=== PATIENT | female | born 1965 | race Caucasian/White ===

== ENCOUNTER 2020-09-09 09:33 | Observation (INO) | payer BC ==
--- OUTSIDE RECORDS SUMMARY | 2020-09-09 10:24 | XMS REPORT | Continuity of Care Document ---
:1965 Author Organization [facility] t Address [address] [place] [address] Care Team Providers Name Role Phone Braulio Beard MD Primary Care Physician Problems Condition Condition Condition Status Onset Resolution Last Treating Co mments Source Name Details Category Date Date Treatment Clinician Date Acute Acute Disease Active 2017-08 [place] perforated perforated - Me thodi appendicit appendicit 00:00: st is is 00 Allergies, Adverse Reactions, Alerts This patient has no known allergies or adverse reactions. Family History Family Member Diagnosis Comments Start Date Stop Date Source Natural father Heart disease [facility] mother Hypertension [facility] Social History Social Habit Start Date Stop Date Quantity Comments Source Sex Assigned At [facility] ethodi Tobacco use and 2018-07-18 2018-07-18 Never used [facility]ist exposure 00:00:00 00:00:00 Alcohol intake 2018-07-18 2018-07-18 Current drinker [place] 00:00:00 00:00:00 of alcohol (finding) Alcohol Comment 2018-07-17 2018-07-17 socially [facility] ethodist 00:00:00 00:00:00 Smoking Status Start Date Stop Date Source Never smoker [place] [facility] t Medications Ordered Filled Start Stop Current Ordering Indication Dosage Frequency Signature Comments Components Source Medication Medication Date Date Medication? Clinician (SIG) Name Name multivitami 2017-08 Yes 1{tbl} QD Take 1 [place] 2-05 tablet by [facility] (THERAGRAN) 13:40: mouth st tablet 40 daily. aspirin 2017-08 Yes 81mg QD Take 81 mg [place] (ECOTRIN) 2-05 by mouth Method i 81 MG 13:40: daily. st enteric 40 coated tablet Procedures This patient has no known procedures. Plan of Care Planned Activity Planned Date Details Comments Source Future Scheduled 2020-03-15 INFLUENZA VACCINE [place] Test 00:00:00 [code = INFLUENZA VACCINE] Future Scheduled 2016 BREAST CANCER [facility] thodist Test 00:00:00 SCREENING [code = BREAST CANCER SCREENING] Future Scheduled 2016 COLONOSCOPY SCREENING [facility] [place] Test 00:00:00 [code = COLONOSCOPY SCREENING] Future Scheduled 2016 SHINGLES VACCINES [place] Test 00:00:00 (#1) [code = SHINGLES VACCINES (#1)] Future Scheduled 1987 Screening for [facility] thodist Test 00:00:00 malignant neoplasm of cervix (procedure) [code = 633269789] Future Scheduled 1982 COVID-19 VACCINE (1 [place] Test 00:00:00 of 2) [code = COVID-19 VACCINE (1 of 2)] Results Test Description Test Time Test Comments Results Result [facility] e Comments SCR MAMM BILATERAL 2020-02-28 - SCR MAMM BILATERAL MAJO CAD DIGITAL 16:01:49 MAJO CAD DIGITALBILATERAL DIGITAL SCREENING MAMMOGRAM 3D/2D WITH CAD: 02/28/2020CLINICAL: Asymptomatic. Digital breast tomosynthesis was performed in addition to routine CC and MLO views. Current mammographic images were evaluated by either a [employer] M-Vu or a [employer] ImageChecker CAD (computer aided detection system). Comparison is made to exams dated 02/26/2019 mammogram, 10/27/2017 mammogram, and 07/15/2016 mammogram - [facility]. There are scattered fibroglandular tissues in both breasts. No suspicious mass, architectural distortion, malignant type calcification, or lymph node abnormality detected. Breast architecture is stable compared to prior exams.IMPRESSION: NEGATIVEThere is no mammographic evidence of malignancy. Resume annual screening mammography in one year. Max Li M.D. ss/penrad:02/28/2020 16:01:49 Senior Operator: Leatha GONZALES, [facility] sent: BIRADS 1-2 Normal Mammogram BI-RADS: 1 Negative SCR MAMM BILATERAL 2019-03-05 - SCR MAMM BILATERAL MAJO CAD DIGITAL 09:25:26 MAJO CAD DIGITALBILATERAL DIGITAL SCREENING MAMMOGRAM 3D/2D WITH CAD: 02/26/2019CLINICAL: Asymptomatic. Digital breast tomosynthesis was performed in addition to routine CC and MLO views. Current mammographic images were evaluated by either a [employer] M-Vu or a [employer] ImageChecker CAD (computer aided detection system). Comparison is made to exams dated 10/27/2017 mammogram, 07/15/2016 mammogram, and 03/05/2015 mammogram - [facility]. There are scattered fibroglandular tissues in both breasts. No suspicious mass, architectural distortion, malignant type calcification, or lymph node abnormality detected. Breast architecture is stable compared to prior exams.IMPRESSION: NEGATIVEThere is no mammographic evidence of malignancy. Resume annual screening mammography in one year. Jas López M.D. qn/penrad:03/05/2019 09:25:26 Senior Operator: Honey GONZALES, [facility] sent: BIRADS 1-2 Normal Mammogram BI-RADS: 1 Negative
--- OUTSIDE RECORDS SUMMARY | 2020-09-09 10:24 | XMS REPORT | Clinical Summary ---
:1965 Author Organization [facility] Address [address] [place] [id number] Care Team Providers Name Role Phone David Beard MD Primary Care Provider [phone] Allergies No Known Active Allergies Medications Medication Sig Dispensed Refills Start Date End Date Status multivitamin Take 1 tablet by 0 Active (THERAGRAN) tablet mouth daily. aspirin (ECOTRIN) 81 MG Take 81 mg by 0 Active enteric coated tablet mouth daily. Active Problems Problem Noted Date Acute perforated appendicitis 07/17/2018 Surgical History Surgery Date Site/Laterality Comments SECTION TUBAL LIGATION HYSTEROSCOPY, WITH UTERINE ABLATION APPENDECTOMY 07/17/2018 Abdomen/N/A Procedure: APPEN DECTOMY; Surgeon: Braulio Chase MD; Loca tion: [facility] OR; Service: [facility]; Laterality: N/A; Family History Medical History Relation Name Comments Heart disease Father Cancer Mother Diabetes Mother Hypertension Mother Relation Name Status Comments Father Mother Social History Tobacco Use Types Packs/Day Years Used Date Never Smoker Smokeless Tobacco: Never Used Alcohol Use Drinks/Week oz/Week Comments Yes socially Sex Assigned at Date Recorded Not on file Last Filed Vital Signs Not on file Plan of Treatment Health Maintenance Due Date Last Done Comments COVID-19 VACCINE (1 of 2) 1982 CERVICAL CANCER SCREENING 1987 BREAST CANCER SCREENING 2016 COLONOSCOPY SCREENING 2016 SHINGLES VACCINES (#1) 2016 INFLUENZA VACCINE 03/15/2020 Results Not on fileafter 09/09/2019 Advance Directives For more information, please contact: [phone] Type Date Recorded 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
[2020-09-09 10:41] LABS: Absolute Lymphocytes (CBC) 0.5 K/uL (0.7-4.9); Basophils % 0.4 % (0-1.3); Hematocrit 41.1 % (36.0-45.0); Lymphocytes % 9.9 % (15.3-44.8); MPV 8.8 fL (7.6-11.3); RBC Red Blood Cell Count 4.62 M/uL (3.86-4.86)
[2020-09-09 10:48] LABS: Protime INR 0.97
[2020-09-09 10:51] LABS: Urine Blood NEGATIVE (NEG); Urine Glucose NEGATIVE (NEG); Urine Protein NEGATIVE (NEG); Urine pH 8.5 (5.0-7.0)
--- NOTE | 2020-09-09 10:54 | RAD REPORT ---
EXAM DESCRIPTION: RAD - Chest Single View - 09/09/2020 10:36 am CLINICAL HISTORY: CHEST PAIN COMPARISON: None TECHNIQUE: AP portable chest image was obtained 09/09/2020 10:36 am . FINDINGS: Lungs are clear. Heart and vasculature are normal. No measurable pleural effusion and no p neumothorax. No acute bony abnormality seen. No acute aortic findings suspected. IMPRESSION: No acute cardiopulmonary process.
[2020-09-09 11:00] LABS: ALT/SGPT 37 U/L (12-78); AST/SGOT 23 U/L (15-37); Albumin 4.3 g/dL (3.4-5.0); Alkaline Phosphatase 108 U/L (45-117); BUN Blood Urea Nitrogen 8 mg/dL (7-18); Bicarbonate 27 mmol/L (21-32); Bilirubin Direct 0.1 mg/dL (0-0.2); Bilirubin Total 0.5 mg/dL (0.2-1.0); Glucose Level 96 mg/dL (74-106); Lipase 137 U/L (73-393); Magnesium 2.6 mg/dL (1.8-2.4); NT PRO-BNP 20 pg/mL (<125); Protein, Total 8.1 g/dL (6.4-8.2); Sodium Level 138 mmol/L (136-145); Troponin (Emerg Dept Use Only) < 0.02 ng/mL (0.0-0.045)
--- NOTE | 2020-09-09 11:01 | RAD REPORT ---
EXAM DESCRIPTION: CT - Angio Aorta For Dissection - 09/09/2020 10:42 am CLINICAL HISTORY: Pain;Dissection;PE COMPARISON: Portable chest September 09 TECHNIQUE: Dynamically enhanced 3 mm thick images of the chest, abdomen, and upper pelvis were obtai jan during administration of approximately 150mL Isovue 370 IV contrast. Sagittal and coronal reconst ruction images were generated using MIP and reviewed. Exam utilizes a protocol to evaluate entire cou rse of the aorta. All CT scans are performed using dose optimization technique as appropriate and may include automated exposure control or mA/KV adjustment according to patient size. FINDINGS: Ascending thoracic aorta measures 3.7 cm in diameter. Aortic arch and descending thoracic aorta are normal diameter. There is gentle tapering along the entire length of the aorta the patient has very little atherosclerotic calcification. No dissection, aneurysm or other aortic abnormality. A ortic arch is 3 vessel configuration with no origins stenoses. No subclavian artery abnormality seen. Pulmonary arteries are well visualized. No pulmonary emboli seen. No cardiomegaly, pericardial thicke ronny or pericardial effusion. No mass or infiltrate in the lung parenchyma. No pleural thickening, pleural effusion or pneumothorax . No abnormal mediastinal or hilar mass or lymphadenopathy seen. No chest wall mass or abnormal axillar y lymphadenopathy. Celiac, SMA and renal arteries show no suspicious findings. Patient has 2 left renal artery supplying the kidney is a normal variant. Inferior mesenteric artery is patent. Solid abdominal viscera and dmitry wel show no significant findings. Incidental note made of 2.8 centimeter cyst in the left lobe liver . No abnormal lymphadenopathy. No gallbladder or biliary tree abnormality identifiable. No free air, free fluid or inflammatory stranding. No urinary bladder abnormality. Uterus and ovaries show no susp icious findings. IMPRESSION: Negative CT scan of the aorta. Negative CT scan of the pulmonary arteries. No other significant findings on chest, abdomen and upper pelvis examination.Nonacute findings detail ed in the body of the report.
--- NOTE | 2020-09-09 12:19 | EDPHYS ---
Physician Documentation [facility] Name: Caitlyn eDl Rosario Age: 55 yrs Sex: Female : 1965 Arrival Date: 09/09/2020 Time: 09:38 Bed 13 Private MD: Braulio Fonseca T ED Physician Phuc Garcia HPI: 09/09 12:12 This 55 yrs old Female presents to ER via Ambulatory with complaints of Back iris Pain, Chest Pain. 12:12 The patient presents with pain that is acute, with no known mechanism of injury. iris Historical: - Allergies: 10:07 No Known Allergies; ss - PMHx: 10:07 None; ss - PSHx: 10:07 Appendectomy; ; ss - Immunization history:: Adult Immunizations up to date. - Social history:: Smoking status: Patient denies any tobacco usage or history of. ROS: 12:12 Constitutional: Negative for fever, chills, and weight loss, Eyes: Negative for injury, iris pain, redness, and discharge, ENT: Negative for injury, pain, and discharge, Neck: Negative for injury, pain, and swelling, Respiratory: Negative for shortness of breath, cough, wheezing, and pleuritic chest pain, Abdomen/GI: Negative for abdominal pain, nausea, vomiting, diarrhea, and constipation, : Negative for injury, bleeding, discharge, and swelling, MS/Extremity: Negative for injury and deformity, Skin: Negative for injury, rash, and discoloration, Neuro: Negative for headache, weakness, numbness, tingling, and seizure, Psych: Negative for depression, anxiety, suicide ideation, homicidal ideation, and hallucinations, Allergy/Immunology: Negative for hives, rash, and allergies, Endocrine: Negative for neck swelling, polydipsia, polyuria, polyphagia, and marked weight changes, Hematologic/Lymphatic: Negative for swollen nodes, abnormal bleeding, and unusual bruising. 12:12 Cardiovascular: Positive for chest pain. 12:12 Back: Positive for pain at rest, of the lumbar area. Exam: 12:12 Constitutional: This is a well developed, well nourished patient who is awake, alert, iris and in no acute distress. Head/Face: Normocephalic, atraumatic. Eyes: Pupils equal round and reactive to light, extra-ocular motions intact. Lids and lashes normal. Conjunctiva and sclera are non-icteric and not injected. Cornea within normal limits. Periorbital areas with no swelling, redness, or edema. ENT: Nares patent. No nasal discharge, no septal abnormalities noted. Tympanic membranes are normal and external auditory canals are clear. Oropharynx with no redness, swelling, or masses, exudates, or evidence of obstruction, uvula midline. Mucous membranes moist. Neck: Trachea midline, no thyromegaly or masses palpated, and no cervical lymphadenopathy. Supple, full range of motion without nuchal rigidity, or vertebral point tenderness. No Meningismus. Chest/axilla: Normal chest wall appearance and motion. Nontender with no deformity. No lesions are appreciated. Cardiovascular: Regular rate and rhythm with a normal S1 and S2. No gallops, murmurs, or rubs. Normal PMI, no JVD. No pulse deficits. Respiratory: Lungs have equal breath sounds bilaterally, clear to auscultation and percussion. No rales, rhonchi or wheezes noted. No increased work of breathing, no retractions or nasal flaring. Abdomen/GI: Soft, non-tender, with normal bowel sounds. No distension or tympany. No guarding or rebound. No evidence of tenderness throughout. Back: No spinal tenderness. No costovertebral tenderness. Full range of motion. Skin: Warm, dry with normal turgor. Normal color with no rashes, no lesions, and no evidence of cellulitis. MS/ Extremity: Pulses equal, no cyanosis. Neurovascular intact. Full, normal range of motion. Neuro: Awake and alert, GCS 15, oriented to person, place, time, and situation. Cranial nerves II-XII grossly intact. Motor strength 5/5 in all extremities. Sensory grossly intact. Cerebellar exam normal. Normal gait. Psych: Awake, alert, with orientation to person, place and time. Behavior, mood, and affect are within normal limits. 12:12 Musculoskeletal/extremity: DVT Exam: No signs of deep vein thrombosis. no pain, no swelling, no tenderness, negative Homans' sign noted on exam, no appreciated bluish discoloration, no erythema, no increased warmth. 12:23 ECG was reviewed by the Attending Physician. [facility] Vital Signs: 10:02 BP 134 / 85; Pulse 85; Resp 17; Temp 98.5(TE); Pulse Ox 98% on R/A; Weight 62.6 kg; ss Height 5 ft. 8 in. (172.72 cm); Pain 2/10; 12:30 BP 137 / 86; Pulse 87; Resp 16; Pulse Ox 98% on R/A; ph 13:30 BP 121 / 85; Pulse 89; Resp 18; Pulse Ox 98% on R/A; ph 14:32 BP 113 / 82; Pulse 91; Resp 18; Pulse Ox 100% on R/A; ph 17:19 BP 107 / 89; Pulse 78; Resp 18; Pulse Ox 99% on R/A; ph 18:46 BP 121 / 87; Pulse 76; Resp 20; Pulse Ox 95% on R/A; ph 10:02 Body Mass Index 20.98 (62.60 kg, 172.72 cm) ss MDM: 10:12 Patient medically screened. iris 12:20 Differential diagnosis: acute pericarditis, anxiety, chest wall pain, Abdominal Aortic iris Aneurysm Cholelithiasis esophagitis, gastritis, pancreatitis, pulmonary embolus, Hydronephrosis Osteoarthritis Pyelonephritis thoracic aortic disection, unstable angina. HEART Score: History: Moderately Suspicious (1), ECG: Normal (0), Age: > 45 and < 65 years (1), Risk Factors: 1 or 2 risk factors (1), [+ Family HX] Troponin: < or = 1 x Normal Limit (0). The patient was given aspirin in the Emergency Department. The patient's deep vein thrombosis risk score was calculated as follows: Total Score: 0. This patient was found to be at low risk for a deep vein thrombosis by using the Well's assessment criteria. The patient's pulmonary embolism risk score was calculated as follows: Total Score: 0-2 points. This patient was found to be at low risk for a pulmonary embolism by using the Well's assessment criteria. VICENTE Risk Score: TOTAL SCORE = 0. Data reviewed: vital signs, nurses notes, lab test result(s), EKG, radiologic studies, CT scan. Data interpreted: library monitor: rate is 85 beats/min, rhythm is regular. Test interpretation: by ED physician or midlevel provider: ECG, plain radiologic studies. Counseling: I had a detailed discussion with the patient and/or guardian regarding: the historical points, exam findings, and any diagnostic results supporting the discharge/admit diagnosis, the presence of at least one elevated blood pressure reading (>120/80) during this emergency department visit, lab results, radiology results, the need for further work-up and treatment in the hospital. 09/09 10:14 Order name: Basic Metabolic Panel; Complete Time: 11:40 [facility] 09/09 10:14 Order name: CBC with Diff; Complete Time: 11:40 [facility] 09/09 10:14 Order name: LFT's; Complete Time: 11:40 [facility] 09/09 10:14 Order name: Magnesium; Complete Time: 11:40 [facility] 09/09 10:14 Order name: NT PRO-BNP; Complete Time: 11:40 [facility] 09/09 10:14 Order name: PT-INR; Complete Time: 11:40 [facility] 09/09 10:14 Order name: Troponin (emerg Dept Use Only); Complete Time: 11:40 [facility] 09/09 10:14 Order name: Lipase; Complete Time: 11:40 [facility] 09/09 10:32 Order name: Urine Dipstick--Ancillary (enter results) 09/09 10:32 Order name: Urine --Ancillary (enter results) 09/09 10:52 Order name: Urine --Ancillary; Complete Time: 11:40 [facility] 09/09 10:52 Order name: Urine Dipstick-Ancillary; Complete Time: 11:40 [facility] 09/09 11:27 Order name: CREATININE WHOLE BLOOD; Complete Time: 11:40 [facility] 09/09 11:42 Order name: Urine Culture [facility] 09/09 10:14 Order name: XRAY Chest (1 view) [facility] 09/09 10:14 Order name: CT Aorta for Dissection [facility] 09/09 10:54 Order name: RAD; Complete Time: 11:40 [facility] 09/09 12:15 Order name: Flu [facility] 09/09 13:45 Order name: Basic Metabolic Panel [facility] 09/09 13:45 Order name: Basic Metabolic Panel [facility] 09/09 13:45 Order name: CBC with Automated Diff [facility] 09/09 13:45 Order name: CBC with Automated Diff [facility] 09/09 13:45 Order name: Lipid Profile [facility] 09/09 13:45 Order name: Lipid Profile [facility] 09/09 13:45 Order name: Troponin I [facility] 09/09 13:45 Order name: Troponin I [facility] 09/09 13:45 Order name: Troponin I [facility] 09/09 15:40 Order name: COVID-19/FLU A+B [facility] 09/10 05:10 Order name: Manual Differential [facility] 09/09 10:14 Order name: EKG; Complete Time: 10:15 [facility] 09/09 10:14 Order name: Cardiac monitoring; Complete Time: : [facility] 09/09 10:14 Order name: EKG - Nurse/Tech; Complete Time: [facility] 09/09 10:14 Order name: IV Saline Lock; Complete Time: [facility] 09/09 10:14 Order name: Labs collected and sent; Complete Time: [facility] 09/09 10:14 Order name: O2 Per Protocol; Complete Time: [facility] 09/09 10:14 Order name: O2 Sat Monitoring; Complete Time: [facility] 09/09 10:14 Order name: Urine Dipstick-Ancillary (obtain specimen); Complete Time: : [facility] 09/09 11:02 Order name: CT; Complete Time: 11:40 [facility] 09/09 12:15 Order name: Echo w/ Doppler [facility] 09/09 12:20 Order name: US Abdomen Limited [facility] 09/09 13:45 Order name: Heart Healthy [facility] EC:23 Rate is 77 beats/min. Rhythm is regular. QRS [place] is Normal. AR interval is normal. QRS iris interval is normal. QT interval is normal. No Q waves. T waves are Normal. No ST changes noted. Clinical impression: Normal ECG and No evidence of ischemia. Interpreted by me. Reviewed by me. Administered Medications: 14:10 Drug: Aspirin Chewable Tablet 324 mg Route: PO; ph 18:48 Follow up: Response: No adverse reaction ph 14:10 Drug: Lopressor (metoprolol TARTRATE) 50 mg Route: PO; ph 18:48 Follow up: Response: No adverse reaction ph 14:15 Drug: NS 0.9% 1000 ml Route: IV; Rate: 125 ml/hr; Site: right antecubital; ph 18:47 Follow up: Response: No adverse reaction; IV Status: Infusion continued upon admission ph 14:15 Drug: Rocephin 1 grams Route: IV; Rate: per protocol; Site: right antecubital; ph 14:30 Follow up: Response: No adverse reaction; IV Status: Completed infusion ph 14:17 Drug: Pepcid 20 mg Route: IVP; Site: right antecubital; ph 18:48 Follow up: Response: No adverse reaction ph 14:20 Drug: Lovenox 60 mg Route: Sub-Q; Site: right lower abdomen; ph 18:48 Follow up: Response: No adverse reaction ph Disposition: 09/09/20 12:18 Hospitalization ordered by Jaden Vasquez for Observation. Preliminary diagnosis are Other chest pain, Essential (primary) hypertension, SARS-associated coronavirus as the cause of diseases classified elsewhere - Covid 19. - Bed requested for [facility]. - Status is Observation. iw - Condition is Fair. - Problem is new. - Symptoms have improved. Signatures: Dispatcher [employer] EDMS Sima Romero Corey, MD MD cha Williams, Irene RN RN iw Bre Hwang RN RN ss Danielle Marks RN RN ph Corrections: (The following items were deleted from the chart) 12:18 12:18 Hospitalization Ordered by Jaden Vasquez for Observation. Preliminary diagnosis iris is Other chest pain. Bed requested for Telemetry/MedSurg (observation). Status is Observation. Condition is Fair. Problem is new. Symptoms have improved. iris 14:19 12:15 CORONAVIRUS+MR.LAB.BRZ ordered. EDSD EDMS 16:03 12:18 09/09/2020 12:18 Hospitalization Ordered by Jaden Vasquez for Observation. iris Preliminary diagnosis is Other chest pain; Essential (primary) hypertension. Bed requested for Telemetry/MedSurg (observation). Status is Observation. Condition is Fair. Problem is new. Symptoms have improved. iris 18:35 16:03 09/09/2020 12:18 Hospitalization Ordered by Jaden Vasquez for Observation. bd Preliminary diagnosis is Other chest pain; Essential (primary) hypertension; SARS-associated coronavirus as the cause of diseases classified elsewhere - Covid 19. Bed requested for Telemetry/MedSurg (observation). Status is Observation. Condition is Fair. Problem is new. Symptoms have improved. iris 09/10 10:46 09/09 18:35 09/09/2020 12:18 Hospitalization Ordered by Jaden Vasquez for Observation. iw Preliminary diagnosis is Other chest pain; Essential (primary) hypertension; SARS-associated coronavirus as the cause of diseases classified elsewhere - Covid 19. Bed requested for [facility] ER HOLD. Status is Observation. Condition is Fair. Problem is new. Symptoms have improved. bd
--- NOTE | 2020-09-09 12:19 | ER ---
Nurse's Notes [facility] Name: Caitlyn Del Rosario Age: 55 yrs Sex: Female : 1965 Arrival Date: 09/09/2020 Time: 09:38 Bed 13 Private MD: Braulio Fonseca T Diagnosis: Other chest pain;Essential (primary) hypertension;SARS-associated coronavirus as the cause of diseases classified elsewhere-Covid 19 Presentation: 09/09 10:02 Chief complaint: Patient states: Back feeling "fatigue" that began this morning and ss sudden onset of sharp chest discomfort that radiated up towards L side of jaw. Pt reports that the pain is feeling a little better, but she can still feel some discomfort. Coronavirus screen: Client denies travel out of the [place] in the last 14 days. Ebola Screen: Patient denies exposure to infectious person. Patient denies travel to an Ebola-affected area in the 21 days before illness onset. Initial Sepsis Screen: Does the patient meet any 2 criteria? No. Patient's initial sepsis screen is negative. Does the patient have a suspected source of infection? No. Patient's initial sepsis screen is negative. Risk Assessment: Do you want to hurt yourself or someone else? Patient reports no desire to harm self or others. Note Pt reports she has had exposures at school to COVID and felt like she may have chills. Onset of symptoms was September 09, 2020. 10:02 Method Of Arrival: Ambulatory ss 10:02 Acuity: REEMA 2 ss Historical: - Allergies: 10:07 No Known Allergies; ss - PMHx: 10:07 None; ss - PSHx: 10:07 Appendectomy; ; ss - Immunization history:: Adult Immunizations up to date. - Social history:: Smoking status: Patient denies any tobacco usage or history of. Screenin:32 Abuse screen: Denies threats or abuse. Denies injuries from another. Nutritional ph screening: No deficits noted. Tuberculosis screening: No symptoms or risk factors identified. Fall Risk None identified. Assessment: 10:29 General: Appears in no apparent distress. comfortable, slender, well groomed, Behavior ph is calm, cooperative, appropriate for age, Denies fever, feeling ill. Pain: Complains of pain in low back, L chest Pain radiates to L jaw Pain began 2 hours ago. Neuro: Level of Consciousness is awake, alert, obeys commands, Oriented to person, place, time, situation. Cardiovascular: Reports chest pain, lightheadedness, nausea, shortness of breath, Capillary refill < 3 seconds in bilateral fingers Patient's skin is warm and dry. Rhythm is sinus rhythm Chest pain quality is heaviness, is located in left anterior chest wall substernal area radiates to left jaw(s). Respiratory: Airway is patent Respiratory effort is even, unlabored, Respiratory pattern is regular, symmetrical. GI: No signs and/or symptoms were reported involving the gastrointestinal system. Patient currently denies abdominal pain, diarrhea, vomiting. : Reports pain in lower back. Derm: Skin is intact, is healthy with good turgor, Skin is pink, warm \\T\\ dry. Musculoskeletal: Circulation, motion, and sensation intact. Range of motion: intact in all extremities. 11:30 Reassessment: Patient appears in no apparent distress at this time. Patient and/or ph family updated on plan of care and expected duration. Pain level reassessed. Patient is alert, oriented x 3, equal unlabored respirations, skin warm/dry/pink. 12:30 Reassessment: Patient appears in no apparent distress at this time. Patient and/or ph family updated on plan of care and expected duration. Pain level reassessed. Patient is alert, oriented x 3, equal unlabored respirations, skin warm/dry/pink. 13:30 Reassessment: Patient appears in no apparent distress at this time. Patient and/or ph family updated on plan of care and expected duration. Pain level reassessed. Patient is alert, oriented x 3, equal unlabored respirations, skin warm/dry/pink. 14:35 Reassessment: Patient appears in no apparent distress at this time. Patient and/or ph family updated on plan of care and expected duration. Pain level reassessed. Patient is alert, oriented x 3, equal unlabored respirations, skin warm/dry/pink. Pt eating sandwich and chips, tolerating well, awaiting room assignment, VSS Patient denies pain at this time. 15:47 Reassessment: Patient appears in no apparent distress at this time. Patient and/or ph family updated on plan of care and expected duration. Pain level reassessed. Patient is alert, oriented x 3, equal unlabored respirations, skin warm/dry/pink. Pt sitting up in bed talking on phone, no complaints at this time, VSS, awaiting room assignmnet. 17:19 Reassessment: Patient appears in no apparent distress at this time. Patient and/or ph family updated on plan of care and expected duration. Pain level reassessed. Patient is alert, oriented x 3, equal unlabored respirations, skin warm/dry/pink. Vital Signs: 10:02 BP 134 / 85; Pulse 85; Resp 17; Temp 98.5(TE); Pulse Ox 98% on R/A; Weight 62.6 kg; ss Height 5 ft. 8 in. (172.72 cm); Pain 2/10; 12:30 BP 137 / 86; Pulse 87; Resp 16; Pulse Ox 98% on R/A; ph 13:30 BP 121 / 85; Pulse 89; Resp 18; Pulse Ox 98% on R/A; ph 14:32 BP 113 / 82; Pulse 91; Resp 18; Pulse Ox 100% on R/A; ph 17:19 BP 107 / 89; Pulse 78; Resp 18; Pulse Ox 99% on R/A; ph 18:46 BP 121 / 87; Pulse 76; Resp 20; Pulse Ox 95% on R/A; ph 10:02 Body Mass Index 20.98 (62.60 kg, 172.72 cm) ED Course: 09:38 Patient arrived in ED. mr 09:38 Braulio Fonseca MD is Private Physician. mr 10:05 Triage completed. ss 10:07 Arm band placed on right wrist. ss 10:12 Phuc Garcia MD is Attending Physician. [facility] 10:16 Danielle Marks, CRIS is Primary Nurse. ph 10:28 Initial lab(s) drawn, by mo, sent to lab. Inserted saline lock: 20 gauge in right dh3 antecubital area, using aseptic technique. Blood collected. 10:29 EKG done, by ED staff, reviewed by Phuc Garcia MD. ph 10:32 Patient has correct armband on for positive identification. Placed in gown. Bed in low ph position. Call light in reach. Side rails up X 1. Pulse ox on. NIBP on. Door closed. Noise minimized. Warm blanket given. 10:38 CT completed. Patient tolerated procedure well. Patient moved to CT via wheelchair. sw Patient moved back from CT. 12:17 Jaden Vasquez is Hospitalizing Provider. iris 12:43 US Abdomen Limited In Process Unspecified. EDMS 14:35 No provider procedures requiring assistance completed. Patient admitted, IV remains in ph place. Administered Medications: 14:10 Drug: Aspirin Chewable Tablet 324 mg Route: PO; ph 18:48 Follow up: Response: No adverse reaction ph 14:10 Drug: Lopressor (metoprolol TARTRATE) 50 mg Route: PO; ph 18:48 Follow up: Response: No adverse reaction ph 14:15 Drug: NS 0.9% 1000 ml Route: IV; Rate: 125 ml/hr; Site: right antecubital; ph 18:47 Follow up: Response: No adverse reaction; IV Status: Infusion continued upon admission ph 14:15 Drug: Rocephin 1 grams Route: IV; Rate: per protocol; Site: right antecubital; ph 14:30 Follow up: Response: No adverse reaction; IV Status: Completed infusion ph 14:17 Drug: Pepcid 20 mg Route: IVP; Site: right antecubital; ph 18:48 Follow up: Response: No adverse reaction ph 14:20 Drug: Lovenox 60 mg Route: Sub-Q; Site: right lower abdomen; ph 18:48 Follow up: Response: No adverse reaction ph Outcome: 12:18 Decision to Hospitalize by Provider. iris 18:35 Admitted to ER Hold. Please see [facility] for further documentation. ph 18:35 Condition: stable 18:35 Instructed on the need for admit. 09/10 10:46 Patient left the ED. iw Signatures: Dispatcher [employer] EDMS Phuc Garcia MD MD cha Rivera, Kandice Hadley, Bre Santizo RN, RN RN ss Hall, Patricia, RN RN Dania Cox Deanna [facility]
[2020-09-09] MEDS ORDERED: MORPHINE 4 MG/ML SYR IV PRN (13:40)
[2020-09-09] MEDS ORDERED: NITROGLYCERIN 0.4 MG/TAB SL PRN (13:40)
--- NOTE | 2020-09-09 13:41 | RAD REPORT ---
EXAM DESCRIPTION: US - Abdomen Exam Limited - 09/09/2020 12:45 pm CLINICAL HISTORY: Abdominal pain. COMPARISON: None. FINDINGS: The gallbladder wall is not thickened. A gallstone is not seen. The biliary tree is normal caliber. IMPRESSION: Unremarkable gallbladder ultrasound.
--- NOTE | 2020-09-09 13:56 | P.HP ---
Certification for Inpatient Patient admitted to: Observation With expected LOS: <2 Midnights Practitioner: I am a practitioner with admitting privileges, knowledge of patient current condition, hospital course, and medical plan of care. Services: Services provided to patient in accordance with Admission requirements found in Title 42 Section 412.3 of the Code of Federal Regulations Patient History Date of Service: 09/09/20 Reason for admission: Chest pain History of Present Illness: 55-year-old woman with no known past medical history presented to the emergency department with a complaint of chest of onset this morning, which occurred while patient was walking. Patient stated she started having low back pain which radiated to involve the anterior chest, then radiated to involve her left jaw and her left arm. She describes maximum intensity of 10/10, she had to bend down because of the pain. No known aggravating or relieving factors. Her initial troponin in the ED is negative. EKG shows normal sinus rhythm, no ischemic changes. Patient reports history of coronary artery disease in both mother and father. Father of a heart attack. Given the atypical nature of her chest pain and family history, patient is placed under observation for ACS rule out. Allergies No Known Allergies Allergy (Unverified 09/09/20 15:19) Home Medications: Aspirin [Aspirin EC 81 MG] 81 mg PO DAILY #30 tablet. 09/10/20 [place]-3 Fatty Acids [[place]-3] 1,000 mg PO BID #60 capsule 09/10/20 - Past Medical/Surgical History Diabetic: No -: None - Family History Father -: Heart disease Mother -: Heart disease - Social History Smoking Status: Never smoker Alcohol use: Yes CD- Drugs: No Place of Residence: Home Review of Systems Other: Except as documented, all other systems reviewed and negative. Physical Examination - Physical Exam General: Alert, In no apparent distress, Oriented x3 HEENT: PERRLA, Mucous membr. moist/pink Neck: Supple, JVD not distended Respiratory: Clear to auscultation bilaterally, Normal air movement Cardiovascular: No edema, Regular rate/rhythm, Normal S1 S2 Gastrointestinal: Normal bowel sounds, Soft and benign, Non-distended, No tenderness Musculoskeletal: No swelling, No tenderness (No back tenderness) Integumentary: No rashes Neurological: Normal strength at 5/5 x4 extr, Cranial nerves 3-12 intact - Studies Laboratory Data (last 24 hrs) 09/09/20 10:28: PT 11.4, INR 0.97 09/09/20 10:28: WBC 5.40, Hgb 14.0, Hct 41.1, Plt Count 191 09/09/20 10:28: Sodium 138, Potassium 4.0, BUN 8, Creatinine 0.78, Glucose 96, Magnesium 2.6 H, Total Bilirubin 0.5, AST 23, ALT 37, Alkaline Phosphatase 108, Lipase 137 Assessment and Plan - Problems (Diagnosis) (1) Chest pain Status: Acute - Plan Place under observation. Trend troponin Obtain echocardiogram. Start aspirin, metoprolol, Lipitor. Consider outpatient stress test - Advance Directives Does patient have a Living Will: No Does patient have a Durable POA for Healthcare: No
[2020-09-09] MEDS ORDERED: CEFTRIAXONE/SWI 1gm 1 GM/10 ML SYR ONE (14:08)
[2020-09-09] MEDS ORDERED: FAMOTIDINE 20 MG/2 ML VIAL IV ONE (14:08)
[2020-09-09] MEDS ORDERED: ASPIRIN 81 MG CHEWABLE TABLET ONE (14:08)
[2020-09-09] MEDS ORDERED: NA CHLORIDE 0.9% 1,000 ML ONE (14:09)
[2020-09-09] MEDS ORDERED: ENOXAPARIN 60 MG/0.6 ML SQ ONE (14:09)
[2020-09-09 15:39] LABS: SARS-COV-2 RT PCR POSITIVE (NEGATIVE)
[2020-09-09 16:11] LABS: HDL Cholesterol 53 mg/dL (40-60); LDL Cholesterol, Calculated 126 (<130); Troponin I < 0.02 ng/mL (0.0-0.045)
[2020-09-09 17:02] VITALS: O2SAT 100
[2020-09-09] MEDS: METOPROLOL TAR 50 MG TAB PO SCH (22:48)
[2020-09-09] MEDS ORDERED: METOPROLOL TAR 25 MG TAB ONE (22:49)
[2020-09-10 00:33] VITALS: BMI 20.9
[2020-09-10 01:12] VITALS: TEMP 98.5
[2020-09-10 03:21] LABS: Absolute Lymphocytes (CBC) 0.9 K/uL (0.7-4.9); Basophils % 0.6 % (0-1.3); Lymphocytes % 22.9 % (15.3-44.8); MPV 8.9 fL (7.6-11.3); RBC Red Blood Cell Count 4.47 M/uL (3.86-4.86)
[2020-09-10 03:40] LABS: Potassium 4.3 mmol/L (3.5-5.1)
[2020-09-10 05:10] LABS: Blood Morphology Comment NOT SEEN (NOT SEEN); Platelet Estimate ADEQ
--- NOTE | 2020-09-10 06:30 | EKG ---
Test Date: 2020-09-09 Test Time: 10:18:23 [employer] Manager: PH MEASUREMENT RESULTS: Intervals: Rate: 77 MO: 156 QRSD: 86 QT: 384 QTc: 434 [place]: P: 62 MO: 156 QRS: 6 T: 58 INTERPRETIVE STATEMENTS: Normal sinus rhythm Normal ECG No previous ECG available for comparison Electronically Signed On 09-10-20 06:27:18 [employer]PLICATION[employer] SPECIALIST by Gerald Fulton
[2020-09-10] MEDS ORDERED: ENOXAPARIN 40 MG/0.4 ML SQ SCH (09:00)
[2020-09-10] MEDS ORDERED: ASPIRIN EC 81 MG TAB PO SCH (09:00)
[2020-09-10] MEDS: METOPROLOL TAR 50 MG TAB PO SCH (09:00)
[2020-09-10 09:01] VITALS: BP 109/77
--- NOTE | 2020-09-10 09:30 | ECHO ---
HEIGHT: 5 ft 8 in WEIGHT: 138 lb 0 oz DATE OF STUDY: 09/09/[address]: Phuc Garcia MD 2-DIMENSIONAL: YES M.MODE: YES DOPPLER: YES COLOR FLOW: YES TDS: PORTABLE: DEFINITY: BUBBLE STUDY: DIAGNOSIS: CHEST PAIN CARDIAC HISTORY: CATHERIZATION: SURGERY: PROSTHETIC VALVE: PACEMAKER: MEASUREMENTS (cm) DIASTOLIC (NORMALS) SYSTOLIC (NORMALS) IVSd 0.9 (0.6-1.2) LA Diam 2.7 (1.9-4.0) LVEF 69% LVIDd 3.6 (3.5-5.7) LVIDs 2.3 (2.0-3.5) %FS 38% LVPWd 1.0 (0.6-1.2) Ao Diam 2.9 (2.0-3.7) 2 DIMENSIONAL ASSESSMENT: RIGHT ATRIUM: NORMAL LEFT ATRIUM: NORMAL RIGHT VENTRICLE: NORMAL LEFT VENTRICLE: NORMAL TRICUSPID VALVE: NORMAL MITRAL VALVE: NORMAL PULMONIC VALVE: NORMAL AORTIC VALVE: NORMAL PERICARDIAL EFFUSION: NONE AORTIC ROOT: NORMAL LEFT VENTRICULAR WALL MOTION: NORMAL DOPPLER/COLOR FLOW: NORMAL COMMENTS: AORTIC SCLEROSIS - NO STENOSIS. NORMAL LEFT VENTRICULAR SIZE AND FUNCTION. NO WALL MOTION ABNORMALITY. NO EFFUSION. TECHNOLOGIST: NICOLE STUART
[2020-09-10] MEDS ORDERED: ASPIRIN EC 81 MG TAB PO ONE (10:56)
--- NOTE | 2020-09-10 17:45 | P.DS ---
Admission Date: 09/09/20 Discharge Date: 09/10/20 Disposition: ROUTINE DISCHARGE Discharge Condition: FAIR Reason for Admission: Chest pain - Problems (1) Chest pain Status: Acute Brief History of Present Illness: 55-year-old woman with no known past medical history presented to the emergency department with a complaint of chest of onset this morning, which occurred while patient was walking. Patient stated she started having low back pain which radiated to involve the anterior chest, then radiated to involve her left jaw and her left arm. She describes maximum intensity of 10/10, she had to bend down because of the pain. No known aggravating or relieving factors. Her initial troponin in the ED is negative. EKG shows normal sinus rhythm, no ischemic changes. Patient reports history of coronary artery disease in both mother and father. Father of a heart attack. Given the atypical nature of her chest pain and family history, patient is placed under observation for ACS rule out. Hospital Course: Patient placed under observation. Troponin trended came back negative. Patient was asymptomatic on my 1st encounter for admission. She remained chest pain free during the rest of the hospital stay. She started complaining of nasal congestion and sore throat. Her COVID 19 screen came back positive. ACS has been ruled out. Given the typical nature of the chest pain patient was informed she will need a stress test along the way after she is over with the COVID infection. Vital Signs/Physical Exam: Temp Pulse Resp BP Pulse Ox 98.5 F 85 15 109/77 99 09/10/20 04:00 09/10/20 08:00 09/10/20 08:00 09/10/20 08:00 09/10/20 08:00 General: Alert, In no apparent distress, Oriented x3 Neck: JVD not distended Cardiovascular: No edema, Regular rate/rhythm, Normal S1 S2 Gastrointestinal: Non-distended Musculoskeletal: No swelling Integumentary: No rashes Neurological: Normal strength at 5/5 x4 extr Laboratory Data at Discharge: WBC 3.80 K/uL (4.3-10.9) L D 09/10/20 03:02 Hgb 13.2 g/dL (12.0-15.0) 09/10/20 03:02 Hct 40.0 % (36.0-45.0) 09/10/20 03:02 Plt Count 175 K/uL (152-406) 09/10/20 03:02 PT 11.4 SECONDS (9.5-12.5) 09/09/20 10:28 INR 0.97 09/09/20 10:28 Sodium 139 mmol/L (136-145) 09/10/20 03:02 Potassium 4.3 mmol/L (3.5-5.1) 09/10/20 03:02 BUN 12 mg/dL (7-18) 09/10/20 03:02 Creatinine 0.76 mg/dL (0.55-1.3) 09/10/20 03:02 Glucose 101 mg/dL (74-106) 09/10/20 03:02 Magnesium 2.6 mg/dL (1.8-2.4) H 09/09/20 10:28 Total Bilirubin 0.5 mg/dL (0.2-1.0) 09/09/20 10:28 AST 23 U/L (15-37) 09/09/20 10:28 ALT 37 U/L (12-78) 09/09/20 10:28 Alkaline Phosphatase 108 U/L (45-117) 09/09/20 10:28 Troponin I < 0.02 ng/mL (0.0-0.045) 09/09/20 21:11 Triglycerides 98 mg/dL (<150) 09/09/20 15:40 Cholesterol 199 mg/dL (<200) 09/09/20 15:40 HDL Cholesterol 53 mg/dL (40-60) 09/09/20 15:40 Cholesterol/HDL Ratio 3.75 09/09/20 15:40 Lipase 137 U/L (73-393) 09/09/20 10:28 Home Medications: Aspirin [Aspirin EC 81 MG] 81 mg PO DAILY #30 tablet. 09/10/20 [place]-3 Fatty Acids [[place]-3] 1,000 mg PO BID #60 capsule 09/10/20 New Medications: Aspirin [Aspirin EC 81 MG] 81 mg PO DAILY #30 tablet. [place]-3 Fatty Acids [[place]-3] 1,000 mg PO BID #60 capsule Diet: [facility] Activity: Ad maria ines Followup: Gerald Fulton MD [ACTIVE - CAN ADMIT] - 1-2 Days Braulio Fonseca MD [Primary Care Provider] -
== END 2020-09-10 10:43 | disposition home or self-care (01) ==
LOC: ER 09:33 → ERHOLD 13:39
PROVIDERS: ADMIT Internal Medicine; ATTEND Internal Medicine
DX: U07.1 COVID-19 (principal); R07.9 Chest pain, unspecified
CPT/HCPCS: 0240U; 36415; 71045; 71275; 74175; 76705; 80048; 80061; 80076; 81003; 81025; 82565; 83690; 83735; 83880; 84484; 85025; 85610; 87086; 87088; 93005; 93306; 94760; 96361; 96372; 96374; 96375; 99285; G0378; J0696; J1650; J7030; Q9967